=== PATIENT | male | born 1975 | race Caucasian/White ===

== ENCOUNTER → 2016-10-30 | Outpatient (CLI) | payer BC ==
--- NOTE | 2016-10-30 10:21 | DIAGNOSTIC IMAGING REPORT ---
ABDOMINAL ULTRASOUND COMPLETE HISTORY: Pain K57.92. COMPARISON: None. FINDINGS: Pancreas: The pancreas demonstrates a normal echotexture. Liver: Fatty infiltration Gallbladder: No gallbladder wall thickening. No gallstones. CBD: 5 mm Kidneys: No hydronephrosis. Spleen: Normal at 10 cm Aorta: Normal in caliber. IVC: Patent. IMPRESSION: Fatty infiltration of liver. Otherwise negative study Electronically signed by: Eliel Durham M.D. 10/30/2016 10:19 AM
== END | disposition home or self-care (01) ==
LOC: C.ULTR 09:26
PROVIDERS: ATTEND Family Medicine
DX: K57.92 Diverticulitis of intestine, part unspecified, without perforation or abscess without bleeding (principal); K76.0 Fatty (change of) liver, not elsewhere classified

== ENCOUNTER → 2018-06-15 | Outpatient (CLI) | payer OTHER | END | disposition home or self-care (01) | LOC: C.FOODA 12:45 | PROVIDERS: ATTEND Nurse Practitioner | DX: R63.5 Abnormal weight gain (principal) ==